=== PATIENT | female | born 1960 | race Caucasian/White ===

== ENCOUNTER 2022-04-07 11:09 | Emergency (ER) | payer SELFPAY ==
[2022-04-07] MEDS ORDERED: SEPTDS PO (12:05)
[2022-04-07] MEDS ORDERED: CEPHALEXIN500 M1 PO (12:05)
== END 2022-04-07 12:00 | disposition home or self-care (01) ==
LOC: ED 11:09
DX: L02.212 Cutaneous abscess of back [any part, except buttock and flank] (principal)

== ENCOUNTER → 2023-01-07 | Outpatient (CLI) | payer OTHER ==
[~2023-01-07] MED LIST: CEPHALEXIN500 M1 PO; SEPTDS PO
[2023-01-07 16:35] LABS: ALKALINE PHOSPHATASE 61 U/L (46-116); BUN 15 mg/dl (9-23); CHLORIDE 106 mmol/L (98-107); SGPT/ALT 13 U/L (10-49); TOTAL PROTEIN 7.1 gm/dL (6.0-8.0)
== END | disposition home or self-care (01) ==
LOC: LAB 15:49
PROVIDERS: ATTEND Orthopaedic Surgery
DX: M25.561 Pain in right knee (principal); R53.83 Other fatigue